=== PATIENT | male | born 1975 | race Caucasian/White ===

== ENCOUNTER 2017-07-21 14:07 | Emergency (ER) | payer BC, OTHER ==
[~2017-07-21] VITALS: Ht 170.2 cm; Wt 77.1 kg
[2017-07-21] MEDS ORDERED: IBUP200C5 PO (14:40)
--- NOTE | 2017-07-21 15:07 | NUR ---
Dr. Amos at bedside for MSE.
[2017-07-21] MEDS ORDERED: IBUPROFEN 600 MG TABLET PO ONE (15:15)
[2017-07-21] MEDS ORDERED: IBUPROFEN 600 MG TABLET ONE (15:37)
--- NOTE | 2017-07-21 16:57 | NUR ---
Patient discharged to home in stable conditon. Written and verbal after care instructions given. Patient verbalizes understanding of instructions.
== END 2017-07-21 17:00 | disposition home or self-care (01) ==
LOC: ER 14:08
DX: S16.1XXA Strain of muscle, fascia and tendon at neck level, initial encounter (principal); S80.02XA Contusion of left knee, initial encounter; Z88.0 Allergy status to penicillin; V43.52XA Car driver injured in collision with other type car in traffic accident, initial encounter; Y92.410 Unspecified street and highway as the place of occurrence of the external cause; Y93.89 Activity, other specified; Y99.8 Other external cause status
CPT/HCPCS: 72050; A4663